=== PATIENT | male | born 1935 | race Caucasian/White ===

== ENCOUNTER 2016-09-30 21:47 | Emergency (ER) | payer MEDICARE ==
[2016-09-30 21:53] VITALS: BP 123/75
[2016-09-30] MEDS ORDERED: Tetan/Diph/Pertus SYR(Tdap)* 0.5 ML SYR(BOOSTRIX) use SYR IM ONE (22:14)
[2016-09-30] MEDS ORDERED: Lidocaine 1% MPF* 2 ML VIAL INJ ONE (22:15)
--- NOTE | 2016-09-30 22:22 | UC ---
Skin Complaint HPI - HPI Summary HPI Summary: WAS UNTANGLING CHAIRS TO WATCH FIREWORKS AND GOT TANGLED UP IN A FISHING POLE THAT WAS NEARBY. FISH HOOK GOT STUCK IN RIGHT PALM. 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 NOT UTD TETANUS. 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 - Onset/Duration: Sudden Onset, Lasting Hours - 1 HOUR, Still Present Timing: Constant Onset Severity: Moderate Current Severity: Moderate Pain Intensity: 0 Pain Scale Used: 0-10 Numeric Location: Discrete - RIGHT PALM Character: Pain Aggravating: Touch Alleviating: Nothing Associated Signs & Symptoms: Positive: Negative Related History: Foreign Body - FISH HOOK - Allergy/Home Medications Allergies/Adverse Reactions: Allergies Allergy/AdvReac Type Severity Reaction Status Date / Time No Known Allergies Allergy Verified 09/30/16 21:53 Home Medications: Home Medications B/P Med 09/30/16 [History] Review of Systems Constitutional: Negative Skin: Other - FB RIGHT HAND Respiratory: Negative Cardiovascular: Negative Gastrointestinal: Negative All Other Systems Reviewed And Are Negative: Yes PMH/Surg Hx/FS Hx/Imm Hx Cardiovascular History: Hypertension - Surgical History Surgical History: Yes Surgery Procedure, Year, and Place: t&a, ulcer repair - Family History Known Family History: Positive: Hypertension - Social History Alcohol Use: Weekly Substance Use Type: None Smoking Status (MU): Never Smoked Tobacco Physical Exam Triage Information Reviewed: Yes Appearance: Well-Appearing, No Pain Distress, Well-Nourished Vital Signs: Initial Vital Signs Temp 97.3 F 09/30/16 21:50 Pulse 76 09/30/16 21:50 Resp 18 09/30/16 21:50 BP 123/75 09/30/16 21:50 Pulse Ox 98 09/30/16 21:50 Vital Signs Reviewed: Yes Eyes: Positive: Conjunctiva Clear ENT: Positive: Hearing grossly normal Neck: Positive: Supple Respiratory: Positive: No respiratory distress, No accessory muscle use Cardiovascular: Positive: Pulses Normal Abdomen Description: Positive: Soft Musculoskeletal: Positive: No Edema Neurological: Positive: Alert Psychological: Positive: Age Appropriate Behavior Skin: Positive: Other - FISH HOOK STUCK IN RIGHT PALM Diagnostics - Radiology RIGHT HAND XRAY Xray Interpretation: No Acute Changes Radiology Interpretation Completed By: ED Physician Course/Dx - Diagnoses Provider Diagnoses: 1. FB (FISH HOOK) REMOVAL RIGHT PALM. 2. TDAP BOOSTER Discharge - Discharge Plan Condition: Stable Disposition: HOME Prescriptions: Cephalexin CAP* [Keflex 500 CAP*] 1,000 mg PO BID #18 cap Patient Education Materials: Soft Tissue Foreign Body (ED) Referrals: Allen Post MD [Primary Care Provider] - If Needed Additional Instructions: FISH HOOK REMOVED. XRAY CONFIRMED NO RETAINED FOREIGN BODY ON MY INTERPRETATION. WE WILL CALL YOU IF RADIOLOGY READ DIFFERS. TAKE KEFLEX TWICE DAILY FOR 5 DAYS TO HELP PREVENT INFECTION. SEEK FOLLOW-UP IF YOU DEVELOP SPREADING REDNESS OF THE SKIN, PURULENT DRAINAGE, FEVER, INCREASED PAIN OR ANY OTHER CONCERNING SYMPTOMS. TETANUS IMMUNIZATION GIVEN (TDAP): You have been given an immunization against tetanus. Please record this in your records. In general, a booster is needed only once every 10 years. The tetanus shot protects against tetanus or "lockjaw," which is a complication of certain wound infections (the tetanus shot cannot protect against the actual infection). The immunization site may become warm and red due to local reaction. If this occurs, apply warm compresses and take aspirin or ibuprofen to reduce inflammation and discomfort. Return for evaluation if the reaction becomes severe.
[2016-09-30] MEDS ORDERED: Cephalexin CAP* 500 MG PO ONE (22:45)
--- NOTE | 2016-10-01 06:21 | RAD ---
INDICATION: For body removal COMPARISON: None TECHNIQUE: AP, lateral, and oblique views were obtained. FINDINGS: There is no metallic density foreign body. There is mild underlying arthritic change. There is no acute bony findings. IMPRESSION: NO RETAINED FOREIGN BODY
== END 2016-09-30 23:04 | disposition home or self-care (01) ==
LOC: UCEAST 21:47
DX: S60.552A Superficial foreign body of left hand, initial encounter (principal); W45.8XXA Other foreign body or object entering through skin, initial encounter
CPT/HCPCS: 90471; 90715; 99202; A9270-GY; G0463

== ENCOUNTER 2018-11-06 15:39 | Emergency (ER) | payer MEDICARE ==
[2018-11-06 17:37] LABS: Urine Appearance Clear; Urine Bilirubin Negative (Negative); Urine Blood Negative (Negative); Urine Color Yellow; Urine Glucose Negative (Negative); Urine Ketones Negative (Negative); Urine Nitrite Negative (Negative); Urine Protein Negative (Negative); Urine Urobilinogen Negative (Negative)
[2018-11-06 17:49] LABS: ABS Eosinophils 0.1 10^3/ul (0-0.6); ABS Lymphocytes 0.7 10^3/ul (1.0-4.8); ABS Monocytes 0.9 10^3/ul (0-0.8); Eosinophil % 0.9 %; Hematocrit 39 % (42-52); Hemoglobin 13.3 g/dL (14.0-18.0); Lymphocyte % 6.3 %; Mean Corpuscular HGB Conc 34 g/dL (31-36); Mean Corpuscular Hemoglobin 31 pg (27-31); Mean Corpuscular Volume 93 fL (80-94); Mean Platelet Volume 7.5 fL (7.4-10.4); Platelet Count 172 10^3/uL (150-450); Red Blood Count 4.25 10^6 /uL (4.18-5.48); Red Cell Distribution Width 14 % (10-15); White Blood Count 11.7 10^3/uL (3.5-10.8)
--- NOTE | 2018-11-06 17:49 | ED ---
Syncope/Near Syncope - HPI Summary HPI Summary: The patient is an 83 y/o M arriving by ambulance [facility] with a chief complaint of syncopal episodes this afternoon. He reports he has a chronic GI issue with dairy products in which he has urgency for BM, and he had yogurt today and then felt diaphoretic with abdominal cramping, so he went to the bathroom, stood up, and had a syncopal episode. He states LOC with the event, and the event was witnessed by the person who called EMS. He denies any jaw pain or CP. He additionally c/o rash secondary to diaphoresis. PMHx: HTN, stomach ulcer with repair. Nonsmoker, weekly EtOH, no substance use. - History Of Current Complaint Chief Complaint: EDSyncope Time Seen by Provider: 11/06/18 16:45 Hx Obtained From: Patient Onset/Duration: Sudden Onset, Lasting Minutes, Resolved Timing: Minutes Context: Witnessed Activity At Onset: Other - going to bathroom, stood up, and syncopized Associated Head Trauma: No Aggravating Factor(s): Other - eating dairy Alleviating Factor(s): Spontaneous Resolution Associated Signs And Symptoms: Diaphoresis, Other - NEGATIVE: CP, jaw pain - Allergies/Home Medications Allergies/Adverse Reactions: Allergies Allergy/AdvReac Type Severity Reaction Status Date / Time No Known Allergies Allergy Verified 09/30/16 21:53 Home Medications: Home Medications Ketoconazole 2 % CREAM (NF) [Nizoral 2% CREAM (NF)] 1 applic TOPICAL DAILY PRN 11/06/18 [History Confirmed 11/06/18] Lisinopril/HCTZ 1012.5(NF) [Zestoretic 10/12.5(NF)] 2 tab PO DAILY 11/06/18 [ History Confirmed 11/06/18] PMH/Surg Hx/FS Hx/Imm Hx Endocrine/Hematology History: Denies: Hx Diabetes Cardiovascular History: Reports: Hx Hypertension GI History: Reports: Hx Ulcer - Surgical History Surgical History: Yes Surgery Procedure, Year, and Place: t&a, ulcer repair Infectious Disease History: No Infectious Disease History: Denies: Traveled Outside the [place] in Last 30 Days - Family History Known Family History: Positive: Hypertension - Social History Alcohol Use: Weekly Hx Substance Use: No Substance Use Type: Reports: None Hx Tobacco Use: No Smoking Status (MU): Never Smoked Tobacco Review of Systems Positive: Skin Diaphoresis Negative: Chest Pain Positive: Other - NEGATIVE: jaw pain Positive: Rash - secondary to diaphoresis Positive: Syncope - with LOC All Other Systems Reviewed And Are Negative: Yes Physical Exam - Summary Physical Exam Summary: Constitutional: Well-developed, Well-nourished, Alert. (-) Distressed Skin: Warm, Dry HENT: Normocephalic; Atraumatic Eyes: Conjunctiva normal Neck: Musculoskeletal ROM normal neck. (-) JVD, (-) Nuchal rigidity Cardio: Rhythm regular, rate normal, Heart sounds normal; Intact distal pulses; Radial pulses are 2+ and symmetric. (-) Murmur Pulmonary/Chest wall: Effort normal. (-) Respiratory distress, (-) Wheezes, (-) Rales Abd: Soft. (-) Tenderness, (-) Distension, (-) Guarding, (-) Rebound Musculoskeletal: (-) Edema Lymph: (-) Cervical adenopathy Neuro: Alert, PERRL, Oriented x3, Strength normal, Cranial nerves II-XII are grossly intact. SILT, Strength 5/5 BUE and BLE, (-) Dysmetria, (-) Nystagmus, ambulates w steady gait. GCS: 15. Psych: Mood and affect Normal Triage Information Reviewed: Yes Vital Signs On Initial Exam: Initial Vitals Temp Pulse Resp BP Pulse Ox 97.3 F 93 16 133/77 98 11/06/18 15:42 11/06/18 15:42 11/06/18 15:42 11/06/18 15:42 11/06/18 15:42 Vital Signs Reviewed: Yes - Hung Coma Scale Best Eye Response: 4 - Spontaneous Best Motor Response: 6 - Obeys Commands Best Verbal Response: 5 - Oriented Coma Scale Total: 15 Diagnostics - Vital Signs Vital Signs Temp Pulse Resp BP Pulse Ox 11/06/18 16:00 62 18 98 11/06/18 15:46 67 24 99 11/06/18 15:42 97.3 F 93 16 133/77 98 - Laboratory Lab Results: Lab Results 11/06/18 Range/Units 17:29 Urine Color Yellow Urine Appearance Clear Urine pH 7.0 (5-9) Ur Specific Wilson 1.010 (1.010-1.030) Urine Protein Negative (Negative) Urine Ketones Negative (Negative) Urine Blood Negative (Negative) Urine Nitrate Negative (Negative) Urine Bilirubin Negative (Negative) Urine Urobilinogen Negative (Negative) Ur Leukocyte Esterase Negative (Negative) Urine Glucose Negative (Negative) Result Diagrams: 11/06/18 17:44 11/06/18 17:44 Lab Statement: Any lab studies that have been ordered have been reviewed, and results considered in the medical decision making process. - Radiology CXR Radiology Interpretation Completed By: Radiologist Summary of Radiographic Findings: Impression: No active cardiopulmonary disease is noted. ED physician has reviewed this report. - CT Brain CT CT Interpretation Completed By: Radiologist Summary of CT Findings: Impression: No evidence of intracranial mass or hemorrhage is noted. ED physician has reviewed this report. - EKG 1651 Cardiac Rate: NL - 62 bpm EKG Rhythm: Sinus Rhythm Summary of EKG Findings: NSR at 62 bpm. Prolonged UT interval. No STEMI. Re-Evaluation - Re-Evaluation First Eval Re-Evaluation Time: 18:15 Comment: Patient ambulated in ED, feels well. Lives w who can watch him at home. Family comfortable w discharge home. Course/Dx Course Of Treatment: 83 y/o male p/w syncopal event. Most likely secondary to vasovagal episode after using the restroom. Syncope. DDx: Seizure: no witnessed seizure activity, incontinence or h/o seizures to suggest seizure today. Hypoxia and hypoglycemia less likely in this patient with normal sats and BG. Cardiac issue: electrical (dysarrhythmias, brugada, WPW, long QT). Less likely given no evidence of drop attack, no palpitations, no EKG findings to predispose to arrhythmias. No CP, no STEMI on EKG; NSTEMI unlikely to cause brief cardiogenic shock in absence of other significant findings, so likely does not need full cardiac rule out with troponins and stress. Mechanical: outflow obstruction like HOCM or aortic stenosis, tamponade-less likely as no murmur, non-exertional, no hypertrophy on EKG. Vessels: PE, dissection, AAA. Clinical picture inconsistent, no abd pain, no pulsatile mass, symmetric pulses , no risk factors of PE. Volume issue: dehydration from vomiting/diarrhea/ decreased PO, sepsis, GI bleed. No hx to suggest bleeding - Diagnoses Provider Diagnoses: Syncope Discharge - Sign-Out/Discharge Documenting (check all that apply): Patient Departure - Patient will be discharged home. Patient Received Moderate/Deep Sedation with Procedure: No - Discharge Plan Condition: Stable Disposition: HOME Patient Education Materials: Syncope (ED) Referrals: Allen Post MD [Primary Care Provider] - 3 Days Additional Instructions: You were seen in the emergency department for syncope. Your labs were normal and your CT head did not show any bleeding. If any studies were not completed at the time of discharge you will be called with the relevant results. Please follow up with your primary care doctor in the next 2-3 days and return to the emergency department for passing out, chest pain, worsening or concerning symptoms. It was a pleasure taking care of you today. - Billing Disposition and Condition Condition: STABLE Disposition: Home - Attestation Statements Document Initiated by Marian: Yes Documenting Scribe: Cher Damian Provider For Whom Marian is Documenting (Include Credential): Dr. Kirk Pendleton MD Scribe Attestation: ICher scribed for Dr. Kirk Pendleton MD on 11/06/18 at 2030. Scribe Documentation Reviewed: Yes Provider Attestation: The documentation as recorded by the Cher gupta accurately reflects the service I personally performed and the decisions made by me, Dr. Kirk Pendleton MD Status of Marian Document: Viewed
[2018-11-06 18:10] LABS: Albumin 4.5 g/dL (3.2-5.2); Albumin/Globulin Ratio 1.4 (1-3); BUN/Creatinine Ratio 25.6 (8-20); Calcium 9.8 mg/dL (8.6-10.3); Globulin 3.2 g/dL (2-4); Magnesium 1.9 mg/dL (1.9-2.7); Total Bilirubin 0.7 mg/dL (0.2-1.0); Total Protein 7.7 g/dL (6.4-8.9)
[2018-11-06 18:31] VITALS: BP 139/80
== END 2018-11-06 18:30 | disposition home or self-care (01) ==
LOC: ED 15:39
DX: R55 Syncope and collapse (principal); R21 Rash and other nonspecific skin eruption; R61 Generalized hyperhidrosis; I10 Essential (primary) hypertension
CPT/HCPCS: 36415; 70450; 71045; 80053; 81003; 83735; 84484; 85025; 93005; 99283